=== PATIENT | female | born 1960 | race Caucasian/White ===

== ENCOUNTER 2019-05-20 19:04 | Emergency (ER) | payer BC ==
[2019-05-20] MEDS ORDERED: Ibuprofen 600 MG Tab PO ONE (20:28)
[2019-05-20] MEDS ORDERED: Acetaminophen/HYDROcodone 325-5 MG Tab PO ONE (20:29)
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
[2019-05-20] MEDS ORDERED: Ondansetron 4 MG Tab.DIS PO ONE (20:36)
--- NOTE | 2019-05-20 22:13 | CRLCR ---
Indication: Fall Technique: Two views of the right clavicle Comparison: None available Findings: Bones: A faint curvilinear lucency in the mid clavicle suggestive of a nondisplaced fracture. No dislocation. Joint spaces: Unremarkable. Soft tissues: An apparent small ovoid calcification adjacent to the acromion on the 2nd view, nonspecific. Focal calcific bursitis is not excluded. Impression: An apparent nondisplaced midclavicular fracture. Correlate with additional oblique views. Dictated by Rufus Shelton MD @ 05/20/2019 10:12:27 PM Dictated by: Rufus Shelton MD @ 05/20/2019 22:12:31 (Electronically Signed)
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
== END 2019-05-20 22:30 | disposition home or self-care (01) ==
LOC: JP.ED 19:04
DX: S42.001A Fracture of unspecified part of right clavicle, initial encounter for closed fracture (principal); R55 Syncope and collapse; Z88.5 Allergy status to narcotic agent; V86.99XA Unspecified occupant of other special all-terrain or other off-road motor vehicle injured in nontraffic accident, initial encounter
CPT/HCPCS: 70450; 73000; 99283; A9270

== ENCOUNTER 2023-04-27 06:57 | Day surgery (SDC) | payer BC ==
[~2023-04-27 06:57] MED LIST: Midazolam 1 MG/ML 2 ML SDV ONE; Propofol 200 MG/20 ML SDV ONE; fentaNYL 50 MCG/ML SDV ONE
[2023-04-27] MEDS ORDERED: Lactated Ringers 1,000 ML IV SCH (07:30)
== END 2023-04-27 09:55 | disposition home or self-care (01) ==
LOC: JP.SDS 06:57
PROVIDERS: ATTEND Family Medicine
DX: Z12.11 Encounter for screening for malignant neoplasm of colon (principal); K64.4 Residual hemorrhoidal skin tags; K64.8 Other hemorrhoids; E11.9 Type 2 diabetes mellitus without complications; Z90.710 Acquired absence of both cervix and uterus; E78.00 Pure hypercholesterolemia, unspecified
CPT/HCPCS: 45378; J2250; J2704; J3010; J7120